=== PATIENT | male | born 1980 | race Caucasian/White ===

== ENCOUNTER 2016-11-28 11:30 | Emergency (ER) | payer SELFPAY ==
[2016-11-28 11:56] VITALS: BP 135/88
[2016-11-28] MEDS ORDERED: Tetan/Diph/Pertus SYR(Tdap)* 0.5 ML SYR(BOOSTRIX) use SYR IM ONE (12:52)
--- NOTE | 2016-11-28 12:52 | RAD ---
Indication: Shot in foot at level of the fifth metatarsal phalangeal joint. Pain. Comparison: None. Technique: AP, lateral, and oblique views RIGHT foot. Report: Negative for fracture or malalignment. Soft tissue swelling at the level of the fifth metatarsal phalangeal joint. 6 x 1 mm ossific density approximating the lateral margin of the fourth metatarsal distal diaphyseal metaphyseal junction conspicuous only on the AP view is low suspicion most likely representing soft tissue calcification. No metallic foreign body evident. IMPRESSION: Negative for fracture or metallic foreign body.
--- NOTE | 2016-11-28 13:39 | UC ---
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 LAST TETANUS UNKNOWN. 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 - History of Current Complaint Chief Complaint: UCLowerExtremity Stated Complaint: PUNCTURE WOUND TO FOOT Time Seen by Provider: 11/28/16 12:17 Hx Obtained From: Patient Onset/Duration: Sudden Onset, Lasting Minutes, Still Present Severity Initially: Severe Severity Currently: Mild Aggravating Factor(s): Standing, Ambulation Able to Bear Weight: Yes - Risk Factors Gout Risk Factors: Negative DVT Risk Factors: Negative Septic Arthritis Risk Factor: Negative - Allergies/Home Medications Allergies/Adverse Reactions: Allergies Allergy/AdvReac Type Severity Reaction Status Date / Time No Known Allergies Allergy Verified 08/01/13 10:32 PMH/Surg Hx/FS Hx/Imm Hx Previously Healthy: Yes Endocrine History Of: Denies: Diabetes, Thyroid Disease Cardiovascular History Of: Denies: Cardiac Disorders, Hypertension Respiratory History Of: Denies: COPD, Asthma GI/ History Of: Denies: Ulcer - Surgical History Surgical History: None - Family History Known Family History: Positive: None - non contributory - Social History Occupation: Employed Full-time Lives: With Family Alcohol Use: None Substance Use Type: Marijuana Smoking Status (MU): Heavy Every Day Tobacco Smoker - Immunization History Most Recent Tetanus Shot: NEED TETANUS TODAY Review of Systems Constitutional: Negative Skin: Negative Eyes: Negative ENT: Negative Respiratory: Negative Cardiovascular: Negative Gastrointestinal: Negative Genitourinary: Negative Motor: Negative Neurovascular: Negative Musculoskeletal: Arthralgia, Edema - DORSUM, Myalgia Neurological: Negative Psychological: Negative All Other Systems Reviewed And Are Negative: Yes Physical Exam Triage Information Reviewed: Yes Appearance: Well-Appearing, No Pain Distress, Well-Nourished Vital Signs: Initial Vital Signs Temp 97.5 F 11/28/16 11:52 Pulse 82 11/28/16 11:52 Resp 16 11/28/16 11:52 BP 135/88 11/28/16 11:52 Pulse Ox 100 11/28/16 11:52 Vital Signs Reviewed: Yes Eye Exam: Normal ENT Exam: Normal ENT: Positive: Normal ENT inspection, Hearing grossly normal, Pharynx normal, TMs normal Dental Exam: Normal Neck exam: Normal Neck: Positive: Supple, Nontender, No Lymphadenopathy Respiratory Exam: Normal Respiratory: Positive: Chest non-tender, Lungs clear, Normal breath sounds, No respiratory distress, No accessory muscle use Cardiovascular Exam: Normal Cardiovascular: Positive: RRR, No Murmur, Pulses Normal Abdominal Exam: Normal Musculoskeletal: Positive: Strength Intact, ROM Intact, Edema @ - DORSUM OF RIGHT FOOT Neurological Exam: Normal Psychological Exam: Normal Lower Extremity Course/Dx - Differential Dx/Diagnosis Differential Diagnosis/HQI/PQRI: Fracture (Closed), Fracture (Open), Puncture Wound, Sprain, Strain Provider Diagnoses: PUNCTURE WOUND RIGHT FOOT. TETANUS PROPHYLAXIS Discharge - Discharge Plan Condition: Stable Disposition: HOME Prescriptions: Ciprofloxacin TAB* [Cipro Tab*] 500 mg PO BID #14 tab Patient Education Materials: Puncture Wound (ED) Forms: *Work Release Referrals: [facility] [place] [facility] [Outside] [facility] [place] [facility] [Outside] No Primary Care Phys,NOPCP [Primary Care Provider] -
== END 2016-11-28 13:29 | disposition home or self-care (01) ==
LOC: UCEAST 11:30
DX: S91.331A Puncture wound without foreign body, right foot, initial encounter (principal); W45.0XXA Nail entering through skin, initial encounter; Y93.H3 Activity, building and construction; Y92.9 Unspecified place or not applicable; Y99.0 Civilian activity done for income or pay; Z23 Encounter for immunization; F17.210 Nicotine dependence, cigarettes, uncomplicated
CPT/HCPCS: 90471; 90715; 99213; G0463

== ENCOUNTER 2018-03-08 11:49 | Emergency (ER) | payer OTHER ==
[2018-03-08] MEDS ORDERED: Albuterol 2.5 MG/3 ML NEB.SOL* (0.083%) INH ONE (12:46)
--- NOTE | 2018-03-08 13:56 | RAD ---
INDICATION: Shortness of breath. COMPARISON: January 17, 2010 TECHNIQUE: Dual energy PA and routine lateral views of the chest were obtained. REPORT: Clear lungs and pleural spaces. Negative for pneumothorax. The heart, pulmonary vasculature, and mediastinal contours are unremarkable. Unremarkable osseous structures and soft tissue contours. IMPRESSION: No evidence for acute intrathoracic disease.
--- NOTE | 2018-03-08 14:01 | ED ---
Lower Extremity - HPI Summary HPI Summary: 37 male presents with left leg ecchymosis for the past 4 days. He states he slipped and fell and rolled his groin muscles. He states since then he has developed ecchymosis and increased swelling. He denies any calf pain. Denies any chest pain. He states he's been having shortness of breath with the cough for the past 3 weeks. He states he has had a cold since then. He denies any palpitations. He states that shortness of breath clears when he coughs. He is a smoker. He denies any recent travel or surgeries. He does have family history of blood clots. Concern he has blood clot. - History of Current Complaint Chief Complaint: EDExtremityLower Stated Complaint: BRUISE ON LT LEG/FALL Time Seen by Provider: 03/08/18 12:32 Pain Intensity: 5 - Allergies/Home Medications Allergies/Adverse Reactions: Allergies Allergy/AdvReac Type Severity Reaction Status Date / Time No Known Allergies Allergy Verified 03/08/18 11:55 PMH/Surg Hx/FS Hx/Imm Hx Endocrine/Hematology History: Denies: Hx Diabetes, Hx Thyroid Disease Cardiovascular History: Denies: Hx Hypertension Respiratory History: Denies: Hx Asthma, Hx Chronic Obstructive Pulmonary Disease (COPD) GI History: Denies: Hx Ulcer Infectious Disease History: No Infectious Disease History: Denies: Hx Hepatitis, Hx Human Immunodeficiency Virus (HIV), Traveled Outside the in Last 30 Days - Family History Known Family History: Positive: None - non contributory - Social History Alcohol Use: None Substance Use Type: Reports: Marijuana Hx Tobacco Use: Yes Smoking Status (MU): Former Smoker Review of Systems Negative: Fever Negative: Chest Pain Negative: Shortness Of Breath Positive: Myalgia - left leg pain Positive: Bruising All Other Systems Reviewed And Are Negative: Yes Physical Exam Triage Information Reviewed: Yes Vital Signs On Initial Exam: Initial Vitals Temp Pulse Resp BP Pulse Ox 98.2 F 87 16 145/105 100 03/08/18 11:52 03/08/18 11:52 03/08/18 11:52 03/08/18 11:52 03/08/18 11:52 Vital Signs Reviewed: Yes Appearance: Positive: Well-Appearing Skin: Positive: Warm, Dry, Other - large ecchymosis area of left thigh Head/Face: Positive: Normal Head/Face Inspection Eyes: Positive: Normal, Conjunctiva Clear ENT: Positive: Pharyngeal erythema Respiratory/Lung Sounds: Positive: Clear to Auscultation, Breath Sounds Present Cardiovascular: Positive: Normal, RRR Musculoskeletal: Positive: Strength/ROM Intact - left leg, Other - good pulses, capillary refill< 2 secs. Negative: Deysi Sign Left, Edema Left Neurological: Positive: Normal Psychiatric: Positive: Normal Diagnostics - Vital Signs Vital Signs Temp Pulse Resp BP Pulse Ox 03/08/18 13:12 85 16 100 03/08/18 11:52 98.2 F 87 16 145/105 100 - Laboratory Result Diagrams: 03/08/18 14:14 03/08/18 14:14 Lab Statement: Any lab studies that have been ordered have been reviewed, and results considered in the medical decision making process. - Radiology chest Xray Interpretation: No Acute Changes Radiology Interpretation Completed By: Radiologist Lower Extremity Course/Dx - Course Course Of Treatment: 37 male presents with left leg ecchymosis for the past 4 days. He states he slipped and fell and rolled his groin muscles. He states since then he has developed ecchymosis and increased swelling. He denies any calf pain. Denies any chest pain. He states he's been having shortness of breath with the cough for the past 3 weeks. He states he has had a cold since then. He denies any palpitations. He states that shortness of breath clears when he coughs. He is a smoker. He denies any recent travel or surgeries. He does have family history of blood clots. Concern he has blood clot. on exam lungs wheezing heard that resolved with breathing treatment. ecchymosis noted to left leg. neurovascular intact. u/s shows dvt. discussed options with patient and decided to do xarelto. will have follow up with care clinic for follow up. chest xray normal.due not suspect PE. patient understand and agrees with plan. - Diagnoses Differential Diagnosis/HQI/PQRI: Positive: Contusion, DVT, Sprain, Strain Provider Diagnoses: DVT (deep venous thrombosis), Ecchymosis, Cough Discharge - Sign-Out/Discharge Documenting (check all that apply): Discharge/Admit/Transfer - Discharge Plan Condition: Good Disposition: HOME Prescriptions: Rivaroxaban TAB(*) [Xarelto 15 mg(*)] 15 mg PO BID #41 tab Patient Education Materials: Rivaroxaban (By mouth), Deep Vein Thrombosis (ED) Referrals: [facility] [Outside] Additional Instructions: Take xarelto twice a day for 21 days then once a day after that Take with food Avoid Aspirin or ibuprofen, use Tylenol for pain Follow up with primary care physician for continued care Return to ED if develop any chest pain or worsening shortness of breath or palpations any new or worsening symptoms - Billing Disposition and Condition Condition: GOOD Disposition: HOME
--- NOTE | 2018-03-08 14:03 | RAD ---
INDICATION: Pain and swelling. COMPARISON: None TECHNIQUE: Duplex interrogation of the Lowerextremity was performed. FINDINGS: Deep veins: The common femoral, great saphenous, profunda femoris, proximal, mid, and distal deep femoral, popliteal, posterior tibial, and peroneal veins were interrogated. There is nonocclusive thrombus in the distal femoral and popliteal veins. The remaining deep venous structures demonstrate normal compressibility, augmentation, and phasic flow. Superficial veins: There are no findings of superficial thrombophlebitis. Popliteal fossa:There is no evidence of a popliteal cyst. Soft tissues:There is edema near the site of bruising in the posterior inner thigh. IMPRESSION: ACUTE DEEP VENOUS THROMBOSIS ADDUCTOR CANAL AND POPLITEAL VEIN. EDEMA AT THE LEVEL OF BRUISING
[2018-03-08 14:36] LABS: ABS Basophils 0.1 10^3/ul (0-0.2); ABS Eosinophils 0.1 10^3/ul (0-0.6); ABS Lymphocytes 2.6 10^3/ul (1.0-4.8); ABS Monocytes 0.6 10^3/ul (0-0.8); ABS Neutrophils 7.4 10^3/ul (1.5-7.7); ABS Nucleated RBC 0 10^3/ul; Eosinophil % 1.1 % (0-6); Hematocrit 46 % (42-52); Hemoglobin 15.5 g/dl (14.0-18.0); Lymphocyte % 24.2 % (25-47); Mean Corpuscular HGB Conc 34 g/dl (31-36); Mean Corpuscular Hemoglobin 31 pg (27-31); Mean Corpuscular Volume 91 fL (80-94); Mean Platelet Volume 8.5 um3 (7.4-10.4); Nucleated Red Blood Cells % 0; Platelet Count 246 10^3/ul (150-450); Red Blood Count 5.03 10^6/ul (4.0-5.4); Red Cell Distribution Width 13 % (10.5-15); White Blood Count 10.8 10^3/ul (3.5-10.8)
[2018-03-08 14:45] LABS: INR 1.02 (0.77-1.02)
[2018-03-08 14:56] LABS: EGFR Non-African American 92.5 (>60)
[2018-03-08] MEDS ORDERED: Rivaroxaban TAB(*) 15 MG PO ONE (15:08)
[2018-03-08 16:03] VITALS: BP 151/69
== END 2018-03-08 16:01 | disposition home or self-care (01) ==
LOC: ED 11:49
DX: I82.432 Acute embolism and thrombosis of left popliteal vein (principal); W01.0XXA Fall on same level from slipping, tripping and stumbling without subsequent striking against object, initial encounter; R58 Hemorrhage, not elsewhere classified; R05 Cough; F17.200 Nicotine dependence, unspecified, uncomplicated
CPT/HCPCS: 36415; 71046; 80053; 85025; 85610; 85730; 99282

== ENCOUNTER 2019-06-28 08:05 | Emergency (ER) | payer OTHER ==
[2019-06-28] MEDS ORDERED: Ketorolac INJ* 30 MG/ML 1 ML VIAL IV ONE (08:16)
[2019-06-28] MEDS ORDERED: NS 0.9% 1000 ML** 1,000 ML IV ONE (08:16)
[2019-06-28] MEDS ORDERED: Ondansetron INJ* 2 MG/ML VIAL IV ONE (08:16)
[2019-06-28 08:45] LABS: ABS Basophils 0.1 10^3/ul (0-0.2); ABS Eosinophils 0.1 10^3/ul (0-0.6); ABS Monocytes 0.5 10^3/ul (0-0.8); ABS Neutrophils 11.3 10^3/ul (1.5-7.7); Eosinophil % 0.6 %; Hematocrit 46 % (42-52); Lymphocyte % 14.4 %; Mean Corpuscular HGB Conc 35 g/dL (31-36); Mean Corpuscular Hemoglobin 31 pg (27-31); Mean Corpuscular Volume 89 fL (80-94); Mean Platelet Volume 8.4 fL (7.4-10.4); Platelet Count 230 10^3/uL (150-450); Red Blood Count 5.11 10^6 /uL (4.18-5.48); Red Cell Distribution Width 13 % (10-15)
[2019-06-28 08:55] LABS: Albumin 4.5 g/dL (3.2-5.2); Albumin/Globulin Ratio 1.9 (1-3); BUN/Creatinine Ratio 12.3 (8-20); C Reactive Protein 13.83 mg/L (<8.01); Calcium 9.5 mg/dL (8.6-10.3); EGFR African American 80.9 (>60); EGFR Non-African American 66.8 (>60); Globulin 2.4 g/dL (2-4); Magnesium 1.7 mg/dL (1.9-2.7); Total Bilirubin 0.3 mg/dL (0.2-1.0); Total Protein 6.9 g/dL (6.4-8.9)
[2019-06-28] MEDS ORDERED: Morphine 4 MG/ML VIAL (1 ml) 4 MG/ML VIAL IV ONE (09:11)
--- NOTE | 2019-06-28 09:50 | ED ---
Abdominal Pain/Male - HPI Summary HPI Summary: This patient is an otherwise healthy 39-year-old male who presents to the ED with severe left-sided flank pain radiating to the LLQ with associated inability to urinate which occurred approximately 1 hour prior to arrival. Patient states he was on his way to work when he had sharp pain to the left side , got out of his truck to try to urinate as he felt the urge, however has been unable to. He denies history of kidney stones renal colic. Denies any abdominal surgeries or other pain. Denies any CP or SOB. He is otherwise healthy and takes no medications. He states he has had a history of UTI in the past, however none recently. Denies any gross hematuria. He states up until approximately one hour prior to arrival, he felt well. - History of Current Complaint Chief Complaint: EDFlankPain Stated Complaint: FLANK PAIN Time Seen by Provider: 06/28/19 08:12 Hx Obtained From: Patient Onset/Duration: Sudden Onset Timing: Constant Severity Initially: Severe Severity Currently: Moderate Pain Intensity: 8 Pain Scale Used: 0-10 Numeric Location: Flank Radiates: Yes Radiates to: LLQ Character: Burning, Cramping, Tearing Aggravating Factor(s): Nothing Alleviating Factor(s): Nothing Associated Signs And Symptoms: Positive: Urinary Symptoms - Risk Factors Testicular Torsion: Negative Cardiac Risk Factors: Negative - Allergies/Home Medications Allergies/Adverse Reactions: Allergies Allergy/AdvReac Type Severity Reaction Status Date / Time No Known Allergies Allergy Verified 03/08/18 11:55 PMH/Surg Hx/FS Hx/Imm Hx Previously Healthy: Yes Endocrine/Hematology History: Denies: Hx Diabetes, Hx Thyroid Disease Cardiovascular History: Denies: Hx Hypertension Respiratory History: Denies: Hx Asthma, Hx Chronic Obstructive Pulmonary Disease (COPD) GI History: Denies: Hx Ulcer - Immunization History Hx Pertussis Vaccination: No Immunizations Up to Date: Yes Infectious Disease History: No Infectious Disease History: Denies: Hx Hepatitis, Hx Human Immunodeficiency Virus (HIV), Traveled Outside the [place] in Last 30 Days - Family History Known Family History: Positive: None - non contributory - Social History Occupation: Employed Full-time Lives: With Family Alcohol Use: None Hx Substance Use: Yes Substance Use Type: Reports: Marijuana Hx Tobacco Use: Yes Smoking Status (MU): Former Smoker Review of Systems Constitutional: Negative Negative: Fever, Chills, Fatigue, Skin Diaphoresis Negative: Palpitations, Chest Pain Negative: Shortness Of Breath, Cough Positive: dysuria, flank pain, pain, urgency. Negative: hematuria Musculoskeletal: Negative Skin: Negative All Other Systems Reviewed And Are Negative: Yes Physical Exam Triage Information Reviewed: Yes Vital Signs On Initial Exam: Initial Vitals Temp Pulse Resp BP Pulse Ox 98.1 F 96 18 156/106 97 06/28/19 08:06 06/28/19 08:06 06/28/19 08:06 06/28/19 08:06 06/28/19 08:06 Vital Signs Reviewed: Yes Appearance: Positive: Well-Appearing, Well-Nourished Skin: Positive: Warm, Skin Color Reflects Adequate Perfusion Head/Face: Positive: Normal Head/Face Inspection Eyes: Positive: EOMI, RASHMI, Conjunctiva Clear Neck: Positive: Supple, No Lymphadenopathy Respiratory/Lung Sounds: Positive: Clear to Auscultation, Breath Sounds Present Cardiovascular: Positive: RRR, Pulses are Symmetrical in both Upper and Lower Extremities Musculoskeletal: Positive: Normal, Strength/ROM Intact Neurological: Positive: Speech Normal Psychiatric: Positive: Normal, Affect/Mood Appropriate AVPU Assessment: Alert Diagnostics - Vital Signs Vital Signs Temp Pulse Resp BP Pulse Ox 06/28/19 09:09 77 153/111 99 06/28/19 09:08 67 99 06/28/19 08:06 98.1 F 96 18 156/106 97 - Laboratory Lab Results: Lab Results 06/28/19 06/28/19 06/28/19 Range/Units 08:31 08:31 08:31 WBC 14.0 H (3.5-10.8) 10^3/uL RBC 5.11 (4.18-5.48) 10^6 /uL Hgb 16.0 (14.0-18.0) g/dL Hct 46 (42-52) % MCV 89 (80-94) fL MCH 31 (27-31) pg MCHC 35 (31-36) g/dL RDW 13 (10-15) % Plt Count 230 (150-450) 10^3/uL MPV 8.4 (7.4-10.4) fL Neut % (Auto) 80.9 % Lymph % (Auto) 14.4 % Carlton % (Auto) 3.7 % Eos % (Auto) 0.6 % Baso % (Auto) 0.4 % Absolute Neuts (auto) 11.3 H (1.5-7.7) 10^3/ul Absolute Lymphs (auto) 2.0 (1.0-4.8) 10^3/ul Absolute Monos (auto) 0.5 (0-0.8) 10^3/ul Absolute Eos (auto) 0.1 (0-0.6) 10^3/ul Absolute Basos (auto) 0.1 (0-0.2) 10^3/ul Absolute Nucleated RBC 0.0 10^3/ul Nucleated RBC % 0.0 Sodium 139 (135-145) mmol/L Potassium 4.0 (3.5-5.0) mmol/L Chloride 104 (101-111) mmol/L Carbon Dioxide 30 (22-32) mmol/L Anion Gap 5 (2-11) mmol/L BUN 15 (6-24) mg/dL Creatinine 1.22 H (0.67-1.17) mg/dL Est GFR ( Amer) 80.9 (>60) Est GFR (Non-Af Amer) 66.8 (>60) BUN/Creatinine Ratio 12.3 (8-20) Glucose 154 H (70-100) mg/dL Lactic Acid 1.9 (0.5-2.0) mmol/L Calcium 9.5 (8.6-10.3) mg/dL Magnesium 1.7 L (1.9-2.7) mg/dL Total Bilirubin 0.30 (0.2-1.0) mg/dL AST 15 (13-39) U/L ALT 22 (7-52) U/L Alkaline Phosphatase 90 (34-104) U/L C-Reactive Protein 13.83 H (<8.01) mg/L Total Protein 6.9 (6.4-8.9) g/dL Albumin 4.5 (3.2-5.2) g/dL Globulin 2.4 (2-4) g/dL Albumin/Globulin Ratio 1.9 (1-3) Lipase 16 (11.0-82.0) U/L Result Diagrams: 06/28/19 08:31 06/28/19 08:31 Lab Statement: Any lab studies that have been ordered have been reviewed, and results considered in the medical decision making process. Abdominal Pain Male Course/Dx - Course Course Of Treatment: During the course of treatment, the patient is evaluated for severe left-sided flank pain. Labs obtained which shows slightly elevated white count. The patient appears to be in pain distress on arrival. Denies any fevers, sweats, chills. Continues to be unable to urinate. CTA obtained which shows: Tiny 1-2 mm calculi in the urinary bladder just distal to the left ureterovesicular junction consistent with recently passed calculus with mild left hydronephrosis and hydroureter. Patient is given fluids, Toradol, Zofran and morphine with good effect. Patient states his pain reduced from a 10/10 to a 3/10. Continues to be unable to urinate, so despite CT results, observed until he was able to urinate. Urinated 500cc's and pt OK for discharge at thistime. UA shows +3 rbc's without signs of infection. - Diagnoses Differential Diagnosis/HQI/PQRI: Renal Colic, Ureteral Stone, Urinary Tract Infection Provider Diagnoses: Kidney stone Discharge ED - Sign-Out/Discharge Documenting (check all that apply): Patient Departure Patient Received Moderate/Deep Sedation with Procedure: No - Discharge Plan Condition: Stable Disposition: HOME Prescriptions: traMADol TAB* [Ultram*] 50 mg PO Q8H PRN #6 tab MDD 3 PRN Reason: Pain Patient Education Materials: Kidney Stones (ED) Referrals: No Primary Care Phys,NOPCP [Primary Care Provider] - Raudel Connor MD [Medical Doctor] - Additional Instructions: Please follow-up with urology if any symptoms worsen or persist Tramadol up to 3 times daily as needed for any discomfort The bladder stones should pass spontaneously in the next several hours to day - Billing Disposition and Condition Condition: STABLE Disposition: Home
[2019-06-28 10:51] LABS: Urine Appearance Clear; Urine Bacteria Absent (Absent); Urine Bilirubin Negative (Negative); Urine Blood 3+ (Negative); Urine Color Yellow; Urine Glucose Negative (Negative); Urine Ketones Negative (Negative); Urine Nitrite Negative (Negative); Urine Protein 1+(30 mg/dL) (Negative); Urine Red Blood Cell 3+(>10/hpf) (Absent); Urine Specific Gravity 1.023 (1.010-1.030); Urine Squamous Epithelial Cell Present (Absent); Urine Urobilinogen Negative (Negative); Urine White Blood Cell Absent (Absent)
[2019-06-28 11:34] VITALS: BP 132/70
== END 2019-06-28 11:33 | disposition home or self-care (01) ==
LOC: ED 08:05
DX: N13.2 Hydronephrosis with renal and ureteral calculous obstruction (principal); Z87.891 Personal history of nicotine dependence; Z79.899 Other long term (current) drug therapy
CPT/HCPCS: 36415; 74176; 80053; 81003; 81015; 83605; 83690; 83735; 85025; 86140; 96361; 96374; 96375; 99284; J1885; J2270; J2405